=== PATIENT | male | born 1960 | race Caucasian/White ===

== ENCOUNTER 2024-08-01 09:27 | Outpatient (CLI) | payer MEDICARE, MEDICAID | END 2024-08-01 09:28 | disposition home or self-care (01) | LOC: CSHWCC 09:27 | PROVIDERS: ATTEND Nurse Practitioner Family | DX: L89.523 Pressure ulcer of left ankle, stage 3 (principal); G80.9 Cerebral palsy, unspecified; I87.2 Venous insufficiency (chronic) (peripheral) | CPT/HCPCS: 11042; G0463; 99213 ==

== ENCOUNTER 2024-08-08 08:43 | Outpatient (CLI) | payer MEDICARE, MEDICAID | END 2024-08-08 08:44 | disposition home or self-care (01) | LOC: CSHWCC 08:43 | PROVIDERS: ATTEND Nurse Practitioner Family | DX: L89.523 Pressure ulcer of left ankle, stage 3 (principal); I87.2 Venous insufficiency (chronic) (peripheral); G80.9 Cerebral palsy, unspecified | CPT/HCPCS: 11042 ==

== ENCOUNTER 2024-08-15 09:07 | Outpatient (CLI) | payer MEDICARE, MEDICAID | END 2024-08-15 09:08 | disposition home or self-care (01) | LOC: CSHWCC 09:07 | PROVIDERS: ATTEND Nurse Practitioner Family | DX: L89.523 Pressure ulcer of left ankle, stage 3 (principal); I87.2 Venous insufficiency (chronic) (peripheral); G80.9 Cerebral palsy, unspecified | CPT/HCPCS: 11042 ==

== ENCOUNTER 2024-09-04 15:35 | Outpatient (CLI) | payer MEDICARE, MEDICAID | END 2024-09-04 15:36 | disposition home or self-care (01) | LOC: CSHWCC 15:35 | PROVIDERS: ATTEND Nurse Practitioner Family | DX: L89.523 Pressure ulcer of left ankle, stage 3 (principal); L89.893 Pressure ulcer of other site, stage 3; G80.9 Cerebral palsy, unspecified; I73.9 Peripheral vascular disease, unspecified; I87.2 Venous insufficiency (chronic) (peripheral) | CPT/HCPCS: 11042 ==

== ENCOUNTER 2024-09-12 08:40 | Outpatient (CLI) | payer MEDICARE, MEDICAID | END 2024-09-12 08:41 | disposition home or self-care (01) | LOC: CSHWCC 08:40 | PROVIDERS: ATTEND Nurse Practitioner Family | DX: L89.523 Pressure ulcer of left ankle, stage 3 (principal); L89.893 Pressure ulcer of other site, stage 3; G80.9 Cerebral palsy, unspecified; I73.9 Peripheral vascular disease, unspecified; I87.2 Venous insufficiency (chronic) (peripheral) | CPT/HCPCS: 97597 ==

== ENCOUNTER 2024-09-30 09:44 | Outpatient (CLI) | payer MEDICARE, MEDICAID | END 2024-09-30 09:45 | disposition home or self-care (01) | LOC: CSHWCC 09:44 | PROVIDERS: ATTEND Nurse Practitioner Family | DX: L89.893 Pressure ulcer of other site, stage 3 (principal); G80.9 Cerebral palsy, unspecified; I73.9 Peripheral vascular disease, unspecified; I87.2 Venous insufficiency (chronic) (peripheral) | CPT/HCPCS: 99212; G0463 ==